=== PATIENT | male | born 1975 | race Caucasian/White ===

== ENCOUNTER 2018-01-14 19:38 | Inpatient (IN) | payer BC, OTHER ==
[~2018-01-14] VITALS: Ht 170.2 cm; Wt 68.0 kg
[2018-01-14] MEDS ORDERED: MAGNESIUM HYDROXIDE 30 ML LIQUID UDC PO PRN (22:45)
[2018-01-14] MEDS ORDERED: LORAZEPAM 2 MG/1 ML VIAL IM PRN (22:45)
[2018-01-14] MEDS ORDERED: THIAMINE HCL 200 MG/2 ML VIAL IM ONE (22:45)
[2018-01-14] MEDS ORDERED: MAG HYDROX/AL HYDROX/SIMETH 30 ML LIQUID UDC PO PRN (22:45)
[2018-01-14] MEDS ORDERED: LORAZEPAM 1 MG TABLET PO PRN ×2 (22:45)
[2018-01-14] MEDS ORDERED: MIRALAX 17 GM POWD.PACK PO PRN (22:45)
[2018-01-14] MEDS ORDERED: LOPERAMIDE HCL 2 MG CAPSULE PO PRN ×2 (22:45)
[2018-01-14] MEDS ORDERED: IBUPROFEN 600 MG TABLET PO PRN (22:45)
[2018-01-14] MEDS ORDERED: ONDANSETRON 4 MG/2 ML VIAL IM PRN (22:45)
[2018-01-14] MEDS ORDERED: HYDROXYZINE PAMOATE 25 MG CAPSULE PO PRN (22:45)
--- NOTE | 2018-01-14 22:50 | NUR ---
Pre-Admission Assessment Pt is a 42 year old male seen at intake, A&Ox4. Pt reports feeling anxious. Upon assessment, pt states he is being admitted to [facility] for ETOH withdrawal. Questions are required to be asked multiple times in order to obtain an accurate/thorough answer. Pt replies to the same question with different responses. Vital signs taken, rules of the unit explained such as vital signs Q4H, wasting of controlled substances, kitchen access, and smoking patio privileges. Pt verbalized understanding. Will continue with admission process upon arrival on unit.
[2018-01-14 23:17] LABS: *AMPHETAMINE, URINE NEGATIVE (NEGATIVE); *BARBITURATE, URINE NEGATIVE (NEGATIVE); *CANNABINOID, URINE POSITIVE (NEGATIVE); *COCCAINE, URINE NEGATIVE (NEGATIVE); *OPIATE, URINE NEGATIVE (NEGATIVE); *PHENCYCLIDINE SCREEN,URINE NEGATIVE (NEGATIVE)
[2018-01-14 23:30] VITALS: BP 125/71
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
[2018-01-15 00:31] LABS: BASOPHILS # (AUTO) 0.1 K/uL (0.0-8.0); EOSINOPHILS # (AUTO) 0.1 K/uL (0.0-0.7); EOSINOPHILS % (AUTO) 1.2 % (0.0-7.0); HEMATOCRIT 23.2 % (36.7-47.1); HEMOGLOBIN 7.5 g/dL (12.5-16.3); LYMPHOCYTES # (AUTO) 3.2 K/uL (20.0-40.0); LYMPHOCYTES % (AUTO) 46.3 % (20.5-51.5); MEAN CORPUSCULAR HEMOGLOBIN 27.2 uug (23.8-33.4); MEAN CORPUSCULAR HGB CONC 32 g/dL (32.5-36.3); MEAN CORPUSCULAR VOLUME 84.4 fL (73.0-96.2); MONOCYTES # (AUTO) 0.4 K/uL (2.0-10.0); MONOCYTES % (AUTO) 6.1 % (0.0-11.0); NEUTROPHILS # (AUTO) 3.2 K/uL (1.8-8.9); NEUTROPHILS % (AUTO) 45.4 % (38.5-71.5); PLATELET COUNT (AUTO) 145 K/uL (152-348); RED BLOOD CELL COUNT(AUTO) 2.75 MIL/uL (4.06-5.63)
[2018-01-15 00:32] VITALS: BP 119/78
[2018-01-15] MEDS: ONDANSETRON ODT 4 MG TAB.RAPDIS SL PRN ×2 (00:41→20:21)
--- NOTE | 2018-01-15 00:45 | NUR ---
PRN Medication Administration patient is noted with increased anxiety, agitation, tremulous, chills, sweats, nausea, episode of vomiting, and light sensitivity. CIWA noted to be 24. PRN Zofran SL and Ativan 2mg administered. will continue to monitor.
--- NOTE | 2018-01-15 01:30 | NUR ---
PRN Medication Reassessment Patient is noted in bed with eyes closed. Breathing even and non labored. No signs of restlessness or facial grimacing noted. PRN Zofran and Ativan 2mg noted to be effective. Will continue to monitor.
[2018-01-15 02:17] LABS: BILIRUBIN,TOTAL 2.6 mg/dL (0.2-1.0); CREATININE 0.9 mg/dL (0.6-1.3); MAGNESIUM 1.9 mg/dL (1.8-2.4); POTASSIUM 3.3 mmol/L (3.5-5.1); TOTAL PROTEIN, SERUM 9.2 g/dL (6.4-8.2)
--- NOTE | 2018-01-15 04:15 | NUR ---
Vitals Refused Patient is noted in bed with eyes closed. Breathing even and non labored. patient is noted to refuse vitals. CIWA not able to be completed as per order. Will continue to monitor.
[2018-01-15 05:50] VITALS: BP 105/58
[2018-01-15 06:13] LABS: THYROID STIMULATING HORMONE 3.389 mIU/mL (0.358-3.740)
--- NOTE | 2018-01-15 07:12 | NUR ---
End of Shift Patient is in bed with eyes closed. Breathing even and non labored. Patient was admitted for ETOH withdrawal. Patient was noted showing increased and symptoms of withdrawal including anxiety, agitation, restlessness, increased chills and sweats, tremulous, nausea, vomiting, and light sensitivity. CIWA noted to be 24. Patient received PRN Zofran SL and Ativan 2mg with medication noted to be effective. Patients lab work resulted with potassium ordered to be supplemented 01/15/18 0900. Will endorse to oncoming shift to follow up with further lab orders. VTE noted to be 2. Last noted CIWA 14 at 0600. Paitent was able to easily fall back asleep with no complications noted. Patient is able to verbalize the medication you gave me really helped me relax. Patient noted to sleep a total of 6 hours. All needs attended to promptly. Will endorse to continue plan of care as ordered.
[2018-01-15 08:00] VITALS: BP 91/55
--- NOTE | 2018-01-15 08:00 | NUR ---
Start of Shift Notes/CIWA Assessment: Received endorsement from night nurse. Patient is a 42 year old male admitted for ETOH withdrawal who was placed on a 5-day Valium taper as ordered. Per night report, patient was given PRN Ativan 2 mg PO as ordered. Slept for a total of 6 hours. Last CIWA 14. Received patient in his room. Alert and oriented x 4. Denies S/I or H/I noted. No AV hallucinations noted. He appears diaphoretic, flushed, tremulous and anxious and increasingly agitated due to the change of environment. Redirection and reassurance was provided. CIWA 17. Educated patient on his current plan of care for the day and his medication regimen. Encouraged oral fluid intake and encouraged group participation to learn new skills to prevent relapse. Will continue to monitor closely.
[2018-01-15] MEDS: DIAZEPAM 10 MG TABLET PO SCH ×4 (08:27→20:21)
[2018-01-15] MEDS: FOLIC ACID 1 MG TABLET PO SCH (08:27)
[2018-01-15] MEDS: THIAMINE HCL 100 MG TABLET PO SCH (08:27)
[2018-01-15] MEDS: MULTIVITAMINS,THERAPEUTIC TABLET PO SCH (08:27)
[2018-01-15] MEDS ORDERED: POTASSIUM CHLORIDE 20 MEQ TAB.PRT.SR PO ONE (09:00)
[2018-01-15] MEDS ORDERED: 5 DAY TAPER VALIUM-SERENITY PROTOCOL PO PRN (09:00)
[2018-01-15] MEDS ORDERED: TUBERCULIN,PURIF.PROT.DERIV. 5 TU/0.1 ML TEST ID ONE (09:00)
[2018-01-15 12:00] VITALS: BP 110/61
--- NOTE | 2018-01-15 12:05 | NUR ---
CIWA Assessment: CIWA 14, patient presented with gross tremors, anxiety, agitation, gross tremors, diaphoresis, chills, and generalized discomfort. Will medicate patient as ordered. Support provided.
--- NOTE | 2018-01-15 13:00 | NUR ---
MD Communication: Labs Relayed patient's abnormal labs to MD Thomason especially PT/INR results and CBC. Patient denies having black tarry stools. No complains of abdominal discomfort noted. Per MD, she will enter orders for more labs in AM and for abdominal US.
[2018-01-15 13:22] LABS: HEMATOCRIT 22.2 % (36.7-47.1); MEAN CORPUSCULAR HEMOGLOBIN 27.4 uug (23.8-33.4); MEAN CORPUSCULAR HGB CONC 33 g/dL (32.5-36.3); MEAN CORPUSCULAR VOLUME 83.9 fL (73.0-96.2); PLATELET COUNT (AUTO) 144 K/uL (152-348); RED BLOOD CELL COUNT(AUTO) 2.65 MIL/uL (4.06-5.63); WHITE BLOOD COUNT (AUTO) 5.9 K/uL (3.6-10.2)
[2018-01-15 13:31] LABS: HEMOGLOBIN 7.3 g/dL (12.5-16.3)
[2018-01-15 13:43] LABS: MONOCYTES % (MANUAL) 6 % (2-10); NEUTROPHILS % (MANUAL) 50 % (42-75)
[2018-01-15 13:44] LABS: EOSINOPHILS % (MANUAL) 2 % (0-8); LYMPHOCYTES % (MANUAL) 42 % (20-40)
[2018-01-15 16:00] VITALS: BP 108/80
--- NOTE | 2018-01-15 16:17 | NUR ---
CIWA Assessment: CIWA 14, patient presented with gross tremors, diaphoresis, fatigue, hot and cold sweats, anxiety, and agitation. No S/I or H/I noted. No AV hallucinations noted. Will medicate patient as ordered. Support provided.
--- NOTE | 2018-01-15 18:58 | NUR ---
End of Shift Notes: Patient initiated his 5-day Valium taper as ordered to manage symptoms related to ETOH withdrawal. VS monitored closely. No significant abnormalities noted. Withdrawal symptoms were closely monitored. Initial CIWA 17, patient presented with gross tremors, diaphoresis, difficulty concentrating, anxiety, agitation, fatigue, malaise and generalized discomfort. Last CIWA 14. Patient verbalizes that Valium has been effective in reducing his withdrawal symptoms. Labs drawn today. Noted with abnormal CBC and PT/INR results. MD aware for abdominal US. Unable to participate in group and activities due to his withdrawal symptoms. All needs met and attended. Will continue to monitor.
--- NOTE | 2018-01-15 19:30 | NUR ---
START OF SHIFT Received 42 year old male patient admitted on 01/14/18 for ETOH withdrawal. Pt is alert and oriented x4. Pt is noted with anxiety, chills, nausea, flushed face, and agitation. Pt is currently receiving a 5 day Valium taper and tolerating well. He did not receive or request PRN medications. His last CIWA:14 at 1600. Breathing is even and unlabored, safety measures in place. Will continue to monitor.
[2018-01-15 20:00] VITALS: BP 125/64
--- NOTE | 2018-01-15 20:00 | NUR ---
CIWA Pt noted with nausea, headache, anxiety, flushed face, and agitation. CIWA:15 prior to 2100 medication administration. Will continue to monitor.
[2018-01-15] MEDS: diphenhydrAMINE 50 MG CAPSULE PO PRN (20:21)
--- NOTE | 2018-01-15 20:27 | NUR ---
PRN ZOFRAN, MOTRIN, and BENADRYL Pt complains of nausea with episode of vomiting, headache 7/10 and insomnia. PRN Zofran, Motrin and Benadryl administered as ordered. Safety measures in place. Will continue to monitor.
--- NOTE | 2018-01-15 21:27 | NUR ---
PRN ZOFRAN, MOTRIN and BENADRYL REASSESSMENT PRN Zofran and Motrin effective. Pt reports headache and nausea decreased. PRN Benadryl ineffective. Pt still awake, appears drowsy and reports he is ready to sleep soon. Breathing even and unlabored, safety measures in place. Will continue to monitor.
[2018-01-16] VITALS: BP 115/71
--- NOTE | 2018-01-16 | NUR ---
CIWA DEFERRED 0000 CIWA deferred d/t pt lying in bed with eyes closed and is noted to be asleep. Breathing is even and unlabored, safety measures in place. Will monitor.
--- NOTE | 2018-01-16 04:00 | NUR ---
VITALS REFUSED, CIWA DEFERRED 0400 vitals refused. CIWA deferred d/t pt lying in bed with eyes closed and is noted to be asleep. Breathing is even and unlabored, safety measures in place. Will monitor.
[2018-01-16] MEDS: PANTOPRAZOLE SODIUM 40 MG TABLET.DR PO SCH (06:53)
--- NOTE | 2018-01-16 07:05 | NUR ---
END OF SHIFT Pt is a 42 year old male patient admitted on 01/14/18 for ETOH withdrawal. Pt remains alert and oriented x4. He was noted with anxiety, chills, nausea, flushed face, and agitation during the shift. He continues on a 5 day Valium taper and tolerating well. At 2026 he received PRN medications of Zofran, Motrin and Benadryl. He slept a total of 9 hrs, Intake: 1210mL, Void: x2, BM:0, last CIWA:15 at 1999. Breathing is even and unlabored, safety measures in place. Will endorse to AM shift.
[2018-01-16 08:00] VITALS: BP 120/72
--- NOTE | 2018-01-16 08:00 | NUR ---
Start of Shift Notes/CIWA Assessment: Received endorsement from night nurse. Patient is a 42 year old male admitted for ETOH withdrawal who was placed on a 5-day Valium taper as ordered. Per night report, patient was given PRN Benadryl, Zofran and Motrin during the night. Slept for a total of 9 hours. Last CIWA 15. Received patient in his room. Alert and oriented x 4. Denies S/I or H/I noted. No AV hallucinations noted. He appears flushed, tremulous and anxious and with worried facial expression. Sweating noted on his forehead. Redirection and reassurance was provided. CIWA 17. Denies any abdominal pain or discomfort at this time. Educated patient on his current plan of care for the day and his medication regimen. Encouraged oral fluid intake and encouraged group participation to learn new skills to prevent relapse. Will continue to monitor closely.
[2018-01-16] MEDS: THIAMINE HCL 100 MG TABLET PO SCH (08:33)
[2018-01-16] MEDS: FOLIC ACID 1 MG TABLET PO SCH (08:33)
[2018-01-16] MEDS: MULTIVITAMINS,THERAPEUTIC TABLET PO SCH (08:33)
[2018-01-16] MEDS: DIAZEPAM 10 MG TABLET PO SCH ×3 (08:33→20:44)
[2018-01-16 08:43] LABS: BASOPHILS % (AUTO) 0.8 % (0.0-2.0); EOSINOPHILS # (AUTO) 0.1 K/uL (0.0-0.7); EOSINOPHILS % (AUTO) 1.1 % (0.0-7.0); LYMPHOCYTES # (AUTO) 2.8 K/uL (20.0-40.0); LYMPHOCYTES % (AUTO) 46.6 % (20.5-51.5); MEAN CORPUSCULAR HEMOGLOBIN 27.5 uug (23.8-33.4); MEAN CORPUSCULAR HGB CONC 32 g/dL (32.5-36.3); MEAN CORPUSCULAR VOLUME 86.1 fL (73.0-96.2); MONOCYTES # (AUTO) 0.5 K/uL (2.0-10.0); NEUTROPHILS # (AUTO) 2.6 K/uL (1.8-8.9); NEUTROPHILS % (AUTO) 43.5 % (38.5-71.5); PLATELET COUNT (AUTO) 146 K/uL (152-348); WHITE BLOOD COUNT (AUTO) 6.1 K/uL (3.6-10.2)
[2018-01-16 08:57] LABS: POTASSIUM 3.8 mmol/L (3.5-5.1); TOTAL PROTEIN, SERUM 8.9 g/dL (6.4-8.2)
--- NOTE | 2018-01-16 09:12 | NUR ---
The patient just had breakfast and requested to perform complete abdominal ultrasound at 4:00 pm. RN noted.
[2018-01-16 10:11] LABS: HEPATITIS B SURFACE AG Negative (Negative)
[2018-01-16 12:00] VITALS: BP 122/70
--- NOTE | 2018-01-16 12:30 | NUR ---
CIWA Assessment: CIWA 13, patient continues to present with s/s of withdrawal m/b gross tremors, anxiety, agitation, diaphoresis and fatigue. Will medicate patient as ordered.
--- NOTE | 2018-01-16 13:45 | NUR ---
New Orders: Patient's labs reviewed with Dr. Thomason. Patient is to have GI consult as ordered. Per GI consult with Dr. Ortiz, patient is OK to have dinner after 1600 abdominal US today and to be NPO again post midnight tonight. Orders noted and carried out. Patient education provided.
[2018-01-16] MEDS: PYRIDOXINE HCL 100 MG TABLET PO SCH (14:24)
[2018-01-16 16:00] VITALS: BP 121/80
--- NOTE | 2018-01-16 16:00 | NUR ---
Abdominal US completed: Abdominal US completed and results relayed to MD Thomason. NNO made at this time. Patient is to have GI consult.
--- NOTE | 2018-01-16 16:30 | NUR ---
CIWA Assessment: CIWA 12, patient continues to present with s/s of withdrawal related to ETOH withdrawal m/b gross tremors, anxiety, agitation, diaphoresis and fatigue. Will medicate patient as ordered.
--- NOTE | 2018-01-16 17:49 | NUR ---
Diet Orders: New orders obtained for the patient to be on clear liquid diet after results were relayed to Dr. Thomason. Patient will continue to be NPO post midnight tonight.
--- NOTE | 2018-01-16 19:01 | NUR ---
End of Shift Notes: Patient continues to be on 5-day Valium taper as ordered to manage symptoms related to ETOH withdrawal. VS monitored closely. No significant abnormalities noted. Withdrawal symptoms were closely monitored. Initial CIWA 17, patient presented with gross tremors, diaphoresis, difficulty concentrating, anxiety, agitation, fatigue, malaise and generalized discomfort. Last CIWA 12. Patient verbalizes that Valium has been effective in reducing his withdrawal symptoms. Labs drawn today. MD aware for abdominal US and GI consult to rule out active bleeding. No s/s of active bleeding noted. Denies black tarry stools, or red colored stools. No vomiting noted. Denies abdominal discomfort noted. Unable to participate in group and activities due to his withdrawal symptoms. All needs met and attended. Will continue to monitor.
[2018-01-16 19:19] LABS: HEMATOCRIT 23.9 % (36.7-47.1); HEMOGLOBIN 7.6 g/dL (12.5-16.3)
--- NOTE | 2018-01-16 19:50 | NUR ---
START OF SHIFT NOTE Rcvd report from outgoing nurse. Pt is a 42 y/o male A/O to person, place, time, and purpose. Pt was admitted for medically supervised withdrawal from ETOH. Pt is on day 2 of a 5 day Valium taper. Pt has been c/o upper right and left abdominal pain for which an ABD US was conducted, GI MD will discuss results w/ pt on 01/17. Pt is scheduled for an EGD on 01/17. Pt is on clear liquid diet until 0000 ! and then NPO after. Pt has been presenting w/ sweats, dizziness, abdominal pain, depressed mood, and flat affect. No PRN medication was given during previous shift. Last CIWA 12 @ 1600. Call light is within reach. Pt will continue to be monitored and needs met.
[2018-01-16 20:02] VITALS: BP 111/72
--- NOTE | 2018-01-16 20:02 | NUR ---
CIWA ASSESSMENT CIWA 12. . Pt has been presenting w/ sweats, dizziness, abdominal pain, depressed mood, and flat affect. V/S: T:98.3, P:92, RR:14, SPO2:100, BP:111/72/.
--- NOTE | 2018-01-16 20:04 | NUR ---
PRN BENADRYL, BENTYL, AND TYLENOL ADMINISTRATION Benadryl 50mg for sleep, Bentyl 20mg for abdominal spasms, and Tylenol 650mg for back pain were given. Pt c/o insomnia, stomach cramps, and 5/10 back pain from 3 slipped discs. Will reassess pt in 1 hr.
[2018-01-16] MEDS: ACETAMINOPHEN 325 MG TABLET PO PRN (20:44)
[2018-01-16] MEDS: DICYCLOMINE HCL 20 MG TABLET PO PRN (20:44)
[2018-01-16] MEDS: diphenhydrAMINE 50 MG CAPSULE PO PRN (20:44)
--- NOTE | 2018-01-16 21:44 | NUR ---
PRN BENADRYL, BENTYL, AND TYLENOL REASSESSMENT Pt is in bed w/ his eyes closed. pt's respirations are unlabored and even.
--- NOTE | 2018-01-17 00:03 | NUR ---
CIWA DEFERRED Pt is in bed w/ his eyes closed. Pt's respirations are unlabored and even.
--- NOTE | 2018-01-17 04:02 | NUR ---
CIWA DEFERRED. V/S REFUSED Pt is in bed w/ his eyes closed. Pt's respirations are unlabored and even.
[2018-01-17] MEDS: PANTOPRAZOLE SODIUM 40 MG TABLET.DR PO SCH (06:43)
--- NOTE | 2018-01-17 07:11 | NUR ---
END OF SHIFT NOTE Endorsed pt to oncoming nurse. Pt is a 42 y/o male A/O to person, place, time, and purpose. Pt was admitted for medically supervised withdrawal from ETOH. Pt completed day 2 of a 5 day Valium taper. Pt has been c/o upper right and left abdominal pain. Pt is scheduled for an EGD on 01/17. Pt was on a clear liquid diet until 0000 on ! and then NPO thereafter. Pt continues presenting w/ sweats, dizziness, abdominal pain, depressed mood, and flat affect. Pt denies any S/I or H/I. PRN Benadryl for sleep, Bentyl for abdominal spasms, and Tylenol for back pain were given and noted effective. Pts fluid intake was 200ml and he slept for 10hrs. Last CIWA 12 @ 1999. Call light is within reach.
--- NOTE | 2018-01-17 07:40 | NUR ---
START OF SHIFT Pt is a 42 yr old male, AA&Ox4. Pt was admitted on 01/14/18 for ETOH withdrawal and is on 5 day Valium taper as ordered. Received report from shift supervisor film processing nurse. Pt was given Benadryl PRN, Tylenol PRN and Bentyl PRN during the night. Medication was effective. Pt slept for 10 hrs. Last CIWA score was 12. Pt is currently c/o feeling nauseous but denies any episodes of emesis, numbness in upper extremities, anxiety, sweats and chills and "feeling woozy". Pt denies any abdominal pain at this time. Received report from shift supervisor film processing nurse, pt was on NPO after midnight for possible EGD. Will continue to f/u with . Pt was instructed to lay in bed and to use call light for assistance. Safety precautions observed. Will continue to monitor. Addendum: 01/17/18 at 1051 by JULIAN LEE LVN CIWA SCORE this morning is 14.
[2018-01-17 07:55] LABS: HEMATOCRIT 25.4 % (36.7-47.1); HEMOGLOBIN 8.3 g/dL (12.5-16.3); MEAN CORPUSCULAR HEMOGLOBIN 27.7 uug (23.8-33.4); MEAN CORPUSCULAR HGB CONC 33 g/dL (32.5-36.3); MEAN CORPUSCULAR VOLUME 85.2 fL (73.0-96.2); PLATELET COUNT (AUTO) 154 K/uL (152-348); RED BLOOD CELL COUNT(AUTO) 2.98 MIL/uL (4.06-5.63)
[2018-01-17 08:00] VITALS: BP 140/77
[2018-01-17 08:04] LABS: WHITE BLOOD COUNT (AUTO) 4.4 K/uL (3.6-10.2)
[2018-01-17 08:41] LABS: BILIRUBIN,DIRECT 1.9 mg/dL (0.0-0.2); BILIRUBIN,TOTAL 3.5 mg/dL (0.2-1.0); TOTAL PROTEIN, SERUM 8.9 g/dL (6.4-8.2)
[2018-01-17] MEDS: MULTIVITAMINS,THERAPEUTIC TABLET PO SCH (08:48)
[2018-01-17] MEDS: DIAZEPAM 5 MG TABLET PO SCH ×4 (08:49→20:44)
[2018-01-17] MEDS: FOLIC ACID 1 MG TABLET PO SCH (08:49)
[2018-01-17] MEDS: THIAMINE HCL 100 MG TABLET PO SCH (08:49)
[2018-01-17 09:08] LABS: BASOPHILS % (MANUAL) 1 % (0-2); EOSINOPHILS % (MANUAL) 3 % (0-8); LYMPHOCYTES % (MANUAL) 44 % (20-40); MONOCYTES % (MANUAL) 8 % (2-10); NEUTROPHILS % (MANUAL) 44 % (42-75)
[2018-01-17] MEDS: PYRIDOXINE HCL 100 MG TABLET PO SCH (09:42)
--- NOTE | 2018-01-17 10:51 | NUR ---
COMMUNICATION Pt was seen and examined by Dr. Mendoza, GI doctor. Per , Pt does not have an active bleeding and there is no need for EDG. Per , NNO at this time
[2018-01-17 12:00] VITALS: BP 128/72
--- NOTE | 2018-01-17 12:00 | NUR ---
CIWA ASSESSMENT Pt is c/o anxiety, agitation, lightheadedness, and numbness is the lower extremities. CIWA score was 9. encouraged increase fluid intake. Will continue to monitor.
--- NOTE | 2018-01-17 13:56 | NUR ---
Therapist prompted client to attend all group therapy sessions.
[2018-01-17 14:54] LABS: IRON, SERUM 23 ug/dL (50-175)
[2018-01-17 16:00] VITALS: BP 123/72
--- NOTE | 2018-01-17 19:10 | NUR ---
END OF SHIFT Pt is a 42 yr old male, AA&Ox4. Pt was admitted on 01/14/18 for ETOH withdrawal is on 5 day Valium taper as ordered. Pt has been cooperative with medication regimen and plan of care. Pt was c/o anxiety, sweats, chills, numbing sensation on upper extremities and states he feels lightheaded. Pt was encouraged increase fluid intake and was educated on fall prevention. pt was able to verbalize understanding. Last CIWA score was 9 at 1600. Safety precautions observed. Endorsed to resource analyst nurse to continue with care.
--- NOTE | 2018-01-17 19:39 | NUR ---
START OF SHIFT NOTE Rcvd report from outgoing nurse. Pt is a 42 y/o male A/O to person, place, time, and purpose. Pt was admitted for medically supervised withdrawal from ETOH. Pt has a medical h/o HTN. Pt has c/o RUQ pain. Pt has had an abdominal US and was scheduled for an EGD that was cxnd. Pt is on day 3 of a 5 day Valium taper. Pt has been presenting w/ anxiety, flat affect, depressed and withdrawn mood, sweats, body aches, and tremors. Pt rcvd no PRN medications during previous shift. Last CIWA 9 @ 1600. Call light is within reach. Pt will continue to be monitored and needs met.
[2018-01-17 20:03] VITALS: BP 123/66
--- NOTE | 2018-01-17 20:05 | NUR ---
CIWA ASSESSMENT CIWA 11. . Pt has been presenting w/ anxiety, flat affect, depressed and withdrawn mood, sweats, body aches, and tremors. V/S: T:98.2, P:98, RR:16, SPO2:99, BP:123/66
[2018-01-17] MEDS: ACETAMINOPHEN 325 MG TABLET PO PRN (20:43)
[2018-01-17] MEDS: diphenhydrAMINE 50 MG CAPSULE PO PRN (20:43)
--- NOTE | 2018-01-17 20:43 | NUR ---
PRN BENADRYL AND TYLENOL ADMINISTRATION Benadryl 50mg for sleep and Tylenol for pain were given. Pt c/o inability to fall asleep and 6/10 back pain. Will reassess pt in 1 hr.
--- NOTE | 2018-01-17 21:43 | NUR ---
PRM BENADRYL AND TYLENOL REASSESSMENT Pt is in bed w/ his eyes closed. pt's respirations are unlabored and even.
[2018-01-17] MEDS ORDERED: ASCORBIC ACID 500 MG TABLET ONE (21:47)
[2018-01-17] MEDS: FERROUS SULFATE 325 MG TABEC PO SCH (21:57)
[2018-01-17] MEDS: ASCORBIC ACID 250 MG TABLET PO SCH (21:59)
--- NOTE | 2018-01-18 00:01 | NUR ---
CIWA DEFERRED. V/S REFUSED Pt is in bed w/ his eyes closed. Pt's respirations are unlabored and even.
--- NOTE | 2018-01-18 04:04 | NUR ---
CIWA DEFERRED. V/S REFUSED Pt is in bed w/ his eyes closed. Pt's respirations are unlabored and even.
[2018-01-18] MEDS: PANTOPRAZOLE SODIUM 40 MG TABLET.DR PO SCH (06:50)
--- NOTE | 2018-01-18 07:14 | NUR ---
END OF SHIFT NOTE Endorsed pt to oncoming nurse. Pt is a 42 y/o male A/O to person, place, time, and purpose. Pt was admitted for medically supervised withdrawal from ETOH. Pt has a medical h/o HTN. Pt has c/o RUQ pain. Pt has had an abdominal US and was scheduled for an EGD that was cxnd. Pt completed day 3 of a 5 day Valium taper. Pt continues presenting w/ anxiety, flat affect, depressed and withdrawn mood, sweats, body aches, and tremors. Pt denies any S/I or H/I. PRN Benadryl 50mg and Tylenol 650mg were given and noted effective. Pt had an Iron level of 23 and was supplemented w/ Ferrous Sulfate and Vitamin C. Pts fluid intake was 1347ml and he slept for 9hrs. Last CIWA 11 @ 1999. Call light is within reach.
[2018-01-18 08:00] VITALS: BP 110/71
--- NOTE | 2018-01-18 08:00 | NUR ---
START OF SHIFT Pt is a 42 yr old male, AA&Ox4. Pt was admitted on 01/14/18 for ETOH withdrawal and is on 5 day Valium taper as ordered. Received report from shiftman nurse. Pt was given Benadryl PRN and Tylenol PRN during the night. Medication was effective. Pt slept for 9 hrs. Last CIWA score was 11. Pt is stating he feels "much better" this morning. Pt denies any lightheadedness. Pt is c/o anxiety but states he is able to cope with anxiety level. Skin is intact, warm and dry to touch. Pt is observed with jaundice in the eyes. Pt was encouraged increase fluid intake for hydration. CIWA score is 4 this morning. Safety precautions observed. Will continue to monitor.
[2018-01-18 08:17] LABS: MEAN CORPUSCULAR HEMOGLOBIN 27.4 uug (23.8-33.4); MEAN CORPUSCULAR HGB CONC 32 g/dL (32.5-36.3); PLATELET COUNT (AUTO) 168 K/uL (152-348); RED BLOOD CELL COUNT(AUTO) 2.94 MIL/uL (4.06-5.63); WHITE BLOOD COUNT (AUTO) 5.6 K/uL (3.6-10.2)
[2018-01-18 08:31] LABS: CREATININE 1.1 mg/dL (0.6-1.3); POTASSIUM 3.9 mmol/L (3.5-5.1); TOTAL PROTEIN, SERUM 8.8 g/dL (6.4-8.2)
[2018-01-18] MEDS: FOLIC ACID 1 MG TABLET PO SCH (08:44)
[2018-01-18] MEDS: DIAZEPAM 5 MG TABLET PO SCH ×3 (08:44→20:05)
[2018-01-18] MEDS: FERROUS SULFATE 325 MG TABEC PO SCH ×3 (08:44→17:06)
[2018-01-18] MEDS: MULTIVITAMINS,THERAPEUTIC TABLET PO SCH (08:44)
[2018-01-18] MEDS: PYRIDOXINE HCL 100 MG TABLET PO SCH (08:44)
[2018-01-18] MEDS: THIAMINE HCL 100 MG TABLET PO SCH (08:44)
[2018-01-18 09:25] LABS: EOSINOPHILS % (MANUAL) 4 % (0-8); LYMPHOCYTES % (MANUAL) 27 % (20-40); MONOCYTES % (MANUAL) 7 % (2-10); NEUTROPHILS % (MANUAL) 62 % (42-75)
[2018-01-18] MEDS: ASCORBIC ACID 250 MG TABLET PO SCH ×3 (09:27→17:06)
[2018-01-18 12:00] VITALS: BP 114/68
--- NOTE | 2018-01-18 12:00 | NUR ---
CIWA ASSESSMENT pt is c/o anxiety, sweats, chills, headache and feeling dizzy. Pt is observed with fine tremors on BUE. CIWA score was 9. encourage increase fluid intake
--- NOTE | 2018-01-18 14:11 | NUR ---
MD COMMUNICATION Report to Dr. Escobar in regard to PT/INR abnormal results. pt also report of having a nose bleed. Dr. Escobar was made aware with NNO.
[2018-01-18 16:00] VITALS: BP 130/88
--- NOTE | 2018-01-18 16:40 | NUR ---
Therapist prompted client to attend group therapy.
--- NOTE | 2018-01-18 18:25 | NUR ---
PRN GIVEN Pt is c/o upset stomach after eating dinner. Maalox 30ml PO PRN was given as ordered. Encouraged increase fluid intake. Will continue to monitor.
--- NOTE | 2018-01-18 19:14 | NUR ---
END OF SHIFT Pt is a 42 yr old male, AA&Ox4. Pt was admitted on 01/14/18 for ETOH withdrawal and is on 5 day Valium taper. Pt has been cooperative with medication regimen and plan of care. Pt has been observed attending group therapy. Pt was c/o anxiety, headache, sweats and chills. Pt was observed with fine tremors and jaundice in the eyes. Pt was encouraged increase fluid intake. Last CIWA score was 7 at 1600. Pt was given Maalox 30ml PRN for upset stomach. Safety precautions observed. Call light is within reach. Endorsed to volcanologist nurse to continue with care.
[2018-01-18 20:00] VITALS: BP 127/72
--- NOTE | 2018-01-18 20:00 | NUR ---
CIWA assessment Patient reports anxiety, restlessness, irritability, agitation , hot and cold sweats, abdominal cramping and tremors. CIWA 11
--- NOTE | 2018-01-18 20:00 | NUR ---
Start of shift note Received report from day shift nurse. Patient is a 42 year old male admitted for ETOH withdrawal. Patient is on 4th day of his 5 day Valium taper. Patient was given PRN Maalox. Patient was c/o heartburn. Last CIWA 7. Patient alert and oriented x 4. Patient presents with flat affect and depressed mood. Patient c/o abdominal pain. Encourage fluids. Safety measures in place. Call light within reach. Will continue to monitor.
[2018-01-18] MEDS: DICYCLOMINE HCL 20 MG TABLET PO PRN (20:05)
--- NOTE | 2018-01-18 20:05 | NUR ---
PRN Bentyl administration Patient c/o abdominal cramping. Will monitor for effectiveness
--- NOTE | 2018-01-18 21:05 | NUR ---
LUIS Sexton re-assessment Patient states bentyl helpful and effective. Patient states he feels much better.
[2018-01-19] VITALS: BP 118/70
--- NOTE | 2018-01-19 | NUR ---
CIWA deferred Patient lying in bed with eyes closed. Respiration even and unlabored. Will continue to monitor
[2018-01-19 04:00] VITALS: BP 104/70
--- NOTE | 2018-01-19 04:00 | NUR ---
CIWA deferred Patient lying in bed with eyes closed. Respiration even and unlabored. Will continue to monitor
[2018-01-19] MEDS: PANTOPRAZOLE SODIUM 40 MG TABLET.DR PO SCH (06:32)
--- NOTE | 2018-01-19 07:15 | NUR ---
Start of Shift Note Pt. is a 42 y/o male admitted for the medically managed withdrawal from ETOH. Pt. was placed on a 5 day Valium taper to manage withdrawal symptoms. Endorse from previous shift pt. presented with depression, anxiety, a flat affect, and agitation. Received pt. in room. Pt. up and getting dressed. Educated on pt.'s on treatment plan and medication regiment for the day. Pt. verbalize understanding. Safety measures in place. Will continue to monitor pt.'s behavior for safety.
--- NOTE | 2018-01-19 07:16 | NUR ---
End of shift note Patient slept 6 hours. Fluid intake 1,250 ml. Voided x 4. BM x 1. Patient alert and oriented x 4. Patient presented with flat affect , depressed and anxious. Scheduled taper given as ordered, tolerated well and no adverse reaction. Patient was given PRN Bentyl for abdominal cramping, effective. Encouraged fluids. Patient compliant with medications and treatment plan. Safety measures in place. Call light within reach. Will continue to monitor. Last CI.
[2018-01-19 08:00] VITALS: BP 112/62
--- NOTE | 2018-01-19 08:00 | NUR ---
CIWA Assessment CIWA of 14. Pt. in room presenting with anxiety, headache, tremors, diaphoresis, and agitation. Will give medications as ordered. Will continue to monitor pt.'s behavior for safety.
[2018-01-19] MEDS: DIAZEPAM 5 MG TABLET PO SCH ×2 (08:19→21:51)
[2018-01-19] MEDS: PYRIDOXINE HCL 100 MG TABLET PO SCH (08:19)
[2018-01-19] MEDS: FERROUS SULFATE 325 MG TABEC PO SCH ×3 (08:19→16:34)
[2018-01-19] MEDS: FOLIC ACID 1 MG TABLET PO SCH (08:19)
[2018-01-19] MEDS: ASCORBIC ACID 250 MG TABLET PO SCH ×3 (08:19→16:35)
[2018-01-19] MEDS: ACETAMINOPHEN 325 MG TABLET PO PRN (08:19)
[2018-01-19] MEDS: THIAMINE HCL 100 MG TABLET PO SCH (08:19)
[2018-01-19] MEDS: MULTIVITAMINS,THERAPEUTIC TABLET PO SCH (08:19)
[2018-01-19] MEDS: ONDANSETRON ODT 4 MG TAB.RAPDIS SL PRN (08:20)
--- NOTE | 2018-01-19 08:20 | NUR ---
PRN Medication Pt. in room complaining of nausea and headache 4/10 pain. PRN Tylenol, and Zofran given at this time to manage withdrawal symptoms. Will continue to monitor pt.'s behavior for safety and medication effectiveness.
--- NOTE | 2018-01-19 09:20 | NUR ---
PRN Re-Assessment Pt. reports a 0/10 headache, and denies any feelings of nausea. Medication effective. Will continue to monitor pt.'s behavior safety.
[2018-01-19 12:00] VITALS: BP 128/67
--- NOTE | 2018-01-19 12:00 | NUR ---
CIWA Assessment CIWA of 11. Pt. in room presenting with anxiety, tremors, diaphoresis, and agitation. Pt. compliant with medication regiment and treatment plan. Will continue to monitor pt.'s behavior for safety.
--- NOTE | 2018-01-19 12:51 | NUR ---
Therapist prompted client to attend group therapy sessions.
[2018-01-19] MEDS ORDERED: ASCO250T5 PO (14:13)
[2018-01-19] MEDS ORDERED: DICY20TA28 PO (14:13)
[2018-01-19] MEDS ORDERED: FERR325T28 PO (14:13)
[2018-01-19] MEDS ORDERED: PANT40TA2 PO (14:13)
[2018-01-19 16:30] VITALS: BP 124/88
--- NOTE | 2018-01-19 19:06 | NUR ---
End of Shift Note Pt. is a 42 y/o male admitted for the medically managed withdrawal from ETOH. Pt. was placed on a 5 day Valium taper to manage withdrawal symptoms. Throughout shift pt. presented with anxiety, a flat affect, headache, nausea, and agitation. PRN Tylenol, and Zofran given to manage withdrawal symptoms. Safety measures in place. Will endorse pt.'s care to oncoming shift.
--- NOTE | 2018-01-19 19:30 | NUR ---
Start of shift Patient is a 42 year old male admitted on 01/14/2018, for medically supervised ETOH withdrawal. Patient is on a 5 day Valium taper. Patients last CIWA was 11, per endorsement patient had PRN Zofran and Tylenol during day shift. Patient is on fall and seizure precautions. Upon rounds patient was noted in room about to go in the shower. Reviewed plan of care with patient and he verbalized understanding. Patient is breathing even and unlabored, no s/s of distress were noted. Safety measures in place, side rails up x2, bed locked in low position, and call light within reach. Will continue to monitor.
[2018-01-19 20:00] VITALS: BP 118/84
--- NOTE | 2018-01-19 20:00 | NUR ---
CIWA Assessment Patient is presenting with the following s/s of withdrawal: tremors, anxiety and agitation. Patients CIWA is 8. Breathing is even and unlabored, no s/s of distress. Safety measures in place, will continue to monitor.
[2018-01-19] MEDS: diphenhydrAMINE 50 MG CAPSULE PO PRN (21:51)
--- NOTE | 2018-01-19 21:51 | NUR ---
PRN Benadryl Patient reported difficulty falling asleep at night, administered PRN Benadryl. Patient tolerated medication well. Safety measures in place, will continue to monitor.
--- NOTE | 2018-01-19 22:51 | NUR ---
PRN Benadryl Reassessment Patient was noted in room resting in bed watching tv, patient stated he was getting ready to go to sleep. Medication noted to be effective. Breathing is even and unlabored. Safety measures in place, will continue to monitor.
[2018-01-20] VITALS: BP 130/70
--- NOTE | 2018-01-20 | NUR ---
CIWA Deferred Patient was noted in bed resting with eyes closed, breathing is even and unlabored. Per protocol CIWA is to be assessed while awake. Safety measures in place, will continue to monitor.
[2018-01-20 04:00] VITALS: BP 124/76
[2018-01-20] MEDS: PANTOPRAZOLE SODIUM 40 MG TABLET.DR PO SCH (07:05)
--- NOTE | 2018-01-20 07:20 | NUR ---
End of shift Patient is a 42 year old male admitted on 01/14/2018, for medically supervised ETOH withdrawal. Patient is on a 5 day Valium taper. Patients last CIWA was 8. Patient is on fall and seizure precautions. Patient had PRN Benadryl during this shift. Patient slept for 6 hours and had a total intake of 855ml. Patient voided x2 and had no bowel movements. Safety measures in place, side rails up x2, bed locked in low position, and call light within reach. Will endorse to day shift.
[2018-01-20 08:00] VITALS: BP 121/64
--- NOTE | 2018-01-20 08:00 | NUR ---
START OF SHIFT Pt is a 42 yr old male, AA&ox4. Pt was admitted on 01/14/18 for ETOH withdrawal and has completed a 5 day Valium taper as ordered. Received report from shift supervisor rn nurse. Pt received Benadryl PRN for sleep. Medication was effective and slept for 6 Last CIWA score was 8. Pt is to be discharged today to [facility]. Pt is c/o anxiety due to discharged but states he is able to cope with anxiety level. Skin is intact, warm and dry to touch. CIWA score this morning is 6. Pt is encouraged increase fluid intake for hydration. Safety precautions observed. Will continue to f/u.
[2018-01-20] MEDS: MULTIVITAMINS,THERAPEUTIC TABLET PO SCH (09:10)
[2018-01-20] MEDS: FERROUS SULFATE 325 MG TABEC PO SCH ×2 (09:10→12:38)
[2018-01-20] MEDS: THIAMINE HCL 100 MG TABLET PO SCH (09:10)
[2018-01-20] MEDS: ASCORBIC ACID 250 MG TABLET PO SCH ×2 (09:10→12:39)
[2018-01-20] MEDS: FOLIC ACID 1 MG TABLET PO SCH (09:10)
[2018-01-20] MEDS: PYRIDOXINE HCL 100 MG TABLET PO SCH (09:10)
[2018-01-20 12:00] VITALS: BP 130/75
--- NOTE | 2018-01-20 12:28 | NUR ---
PRN GIVEN pt was c/o anxiety due to discharged. Vistaril 25mg PO PRN was given as ordered. encouraged increase fluid intake.
--- NOTE | 2018-01-20 12:56 | NUR ---
DISCHARGED NOTE Pt is a 42 yr old male, AA&ox4. Pt was admitted on 01/14/18 for ETOH withdrawal and has completed a 5 day Valium taper as ordered. Pt has been cooperative with medication regimen and plan of care. Pt was c/o anxiety due to discharged but states he is able to cope with anxiety level. Pt was educated on discharged summary and prescriptions. Pt was able to verbalize understanding. Pt was discharged off the unit at 1252 in stable condition. Pt was discharged to [facility]. Pt left with all belongings and valuables. No home medication was brought.
== END 2018-01-20 12:50 | disposition other institution (70) | DRG 895 ==
LOC: SRC 21:45
PROVIDERS: ADMIT Internal Medicine; ATTEND Internal Medicine
PROC: HZ2ZZZZ Detoxification Services for Substance Abuse Treatment (ICD-10-PCS; principal; 2018-01-14)
PROC: HZ41ZZZ Group Counseling for Substance Abuse Treatment, Behavioral (ICD-10-PCS; 2018-01-16)
PROC: HZ31ZZZ Individual Counseling for Substance Abuse Treatment, Behavioral (ICD-10-PCS; 2018-01-17)
DX: F10.230 Alcohol dependence with withdrawal, uncomplicated (principal); E87.1 Hypo-osmolality and hyponatremia; Y90.8 Blood alcohol level of 240 mg/100 ml or more; F17.210 Nicotine dependence, cigarettes, uncomplicated; Z81.1 Family history of alcohol abuse and dependence; Z83.79 Family history of other diseases of the digestive system; K70.10 Alcoholic hepatitis without ascites; D50.9 Iron deficiency anemia, unspecified; K27.9 Peptic ulcer, site unspecified, unspecified as acute or chronic, without hemorrhage or perforation; E87.6 Hypokalemia; K76.0 Fatty (change of) liver, not elsewhere classified; R04.0 Epistaxis; E88.09 Other disorders of plasma-protein metabolism, not elsewhere classified; D69.6 Thrombocytopenia, unspecified; G89.29 Other chronic pain; M51.9 Unspecified thoracic, thoracolumbar and lumbosacral intervertebral disc disorder; F41.1 Generalized anxiety disorder; K74.60 Unspecified cirrhosis of liver; I10 Essential (primary) hypertension; I95.9 Hypotension, unspecified; E83.42 Hypomagnesemia
CPT/HCPCS: 36415; 70030-TC; 76700; 80307; 80349; 83550; 83690; 83735; 84443; 85018; 85025; 85730; 86580; 86592; 86705; 86803; 87340; 87806; G0480; Q0162; Q0163